=== PATIENT | female | born 1990 | race African-American/Black ===

== ENCOUNTER 2018-12-12 09:40 | Emergency (ER) | payer OTHER ==
[~2018-12-12] VITALS: Ht 170.2 cm; Wt 64.9 kg
[2018-12-12 10:03] VITALS: BP 119/74
--- NOTE | 2018-12-12 10:05 | NUR ---
ED Nurse Note: pt walked in to ED due to abscess on left buttocks for 3 days. per pt, it was not that bad until this morning. pt tried to pop and size get bigger and painful. no drainage noted. swelling noted. AAO x4. respirations even and non-labored noted. will wait for the further order.
[2018-12-12] MEDS ORDERED: Lidocaine 1% MPF 10mg/ml 5ml INJ ONE (10:30)
--- NOTE | 2018-12-12 11:10 | NUR ---
HAND-OFF: Report given to WINSTON Varner.
[2018-12-12] MEDS ORDERED: DOXYCYCLINE MO100 MG ORAL (12:07)
--- NOTE | 2018-12-12 12:07 | Emergency Room Report ---
History of Present Illness General Chief Complaint: Skin Rash/Abscess Source: Patient Present Illness HPI She states that for the past 3 days she has noted a bump on her left mid buttock. She states she has had abscesses before and she is concerned that this is becoming warm. She denies fever chills. She denies nausea or vomiting. She states that it is tender to the touch. She has no other complaints. Allergies: Coded Allergies: No Known Allergies (Unverified , 12/12/18) Patient History Past Medical History: see triage record, other - anemia Social History: Denies: smoking, alcohol use, drug use Last Menstrual Period: 12/02/18 Now: No Reviewed Nursing Documentation: PMH: Agreed; PSxH: Agreed Nursing Documentation-PMH Past Medical History: No History, Except For Review of Systems All Other Systems: negative except mentioned in HPI Physical Exam Vital Signs Date Time Temp Pulse Resp B/P (MAP) Pulse Ox O2 Delivery O2 Flow Rate FiO2 12/12/18 09:46 98.2 83 21 95 Room Air 12/12/18 10:03 119/74 Sp02 EP Interpretation: reviewed, normal General Appearance: no apparent distress, alert, GCS 15, non-toxic Head: normocephalic, atraumatic Eyes: bilateral eye normal inspection, bilateral eye PERRL ENT: hearing grossly normal, normal pharynx, no angioedema, normal voice Neck: normal inspection Respiratory: no respiratory distress, no retraction, no accessory muscle use, speaking full sentences Rectal: deferred Musculoskeletal: back normal, gait/station normal, normal range of motion Neurologic: alert, oriented x3, responsive, motor strength/tone normal, speech normal Psychiatric: judgement/insight normal, memory normal, mood/affect normal, no suicidal/homicidal ideation Skin: warm/dry, well hydrated, other - L. mid buttock with quarter-sized area of erythema with tiny central pustule Lymphatic: no adenopathy Procedures Incision and Drainage Incision and Drainage : Consent: Verbal Site: L. buttock Blade Size: Wound Location: other - buttock Anesthesia: 1% Lidocaine Volume Anesthetic (ccs): 2 Patient Tolerated: Well Complications: None Medical Decision Making Diagnostic Impression: Primary Impression: Cellulitis ER Course Patient has a small area of cellulitis on her left mid buttock. I believe that there was a small pustule there that drained spontaneously. However, I did attempt needle aspiration of the area and there were no purulent discharge obtained. I will place the patient on antibiotics. There is no systemic symptoms and overall the patient is nontoxic and well-appearing. She is given close return precautions and follow-up instructions. Last Vital Signs Date Time Temp Pulse Resp B/P (MAP) Pulse Ox O2 Delivery O2 Flow Rate FiO2 12/12/18 10:03 98.2 83 21 119/74 95 Room Air Status: improved Disposition: HOME, SELF-CARE Condition: Improved Referrals: NON PHYSICIAN (PCP) Jewell Diego DO December 12, 2018 12:07
[2018-12-12] MEDS ORDERED: HIBICLENS118 ML TP (12:08)
[2018-12-12] MEDS ORDERED: IBUPROFEN600 MG ORAL (12:08)
--- NOTE | 2018-12-12 12:21 | NUR ---
ED Nurse Note: pt cleared to be d/c per ERMD, pt discharge and aftercare instruction provided w/ prescription sent electronically, pt education done via discussion and handout, pt verbalized understanding and agrees with plan, pt advised to follow up with pcp or return to ER if changes in condition, vss, resp even and unlabored on RA, pt left w/ all belongings.
[2018-12-12 12:22] VITALS: BP 116/76
== END 2018-12-12 12:23 | disposition home or self-care (01) ==
LOC: EMR 10:17
DX: L03.317 Cellulitis of buttock (principal)
CPT/HCPCS: 10060; 99282

== ENCOUNTER 2020-03-06 13:25 | Emergency (ER) | payer OTHER ==
[~2020-03-06] VITALS: Ht 172.7 cm; Wt 59.0 kg
[~2020-03-06 13:25] MED LIST: DOXYCYCLINE MO100 MG ORAL; HIBICLENS118 ML TP; IBUPROFEN600 MG ORAL
[2020-03-06 13:46] VITALS: BP 111/77
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
[2020-03-06] MEDS ORDERED: Lidocaine 1% MPF 10mg/ml 5ml INJ ONE (14:15)
[2020-03-06 14:40] LABS: BILIRUBIN, URINE NEGATIVE (NEGATIVE); COLOR,URINE PALE YELLOW; GLUCOSE, URINE (UA) NEGATIVE (NEGATIVE); KETONES,URINE NEGATIVE (NEGATIVE); LEUKOCYTE ESTERASE ,URINE NEGATIVE (NEGATIVE); NITRITE,URINE NEGATIVE (NEGATIVE); PH,URINE 6 (4.5-8.0); PROTEIN,URINE NEGATIVE (NEGATIVE); UROBILINOGEN,URINE NORMAL MG/DL (0.0-1.0)
[2020-03-06 14:41] LABS: APPEARANCE,URINE CLEAR
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
[2020-03-06] MEDS ORDERED: VIBRAMYCIN100 MG ORAL (14:47)
[2020-03-06] MEDS ORDERED: FLUCONAZOLE100 MG ORAL (14:47)
[2020-03-06 15:04] VITALS: BP 111/77
--- NOTE | 2020-03-06 15:05 | NUR ---
ED Nurse Note: Pt cleared by health care Provider for discharge. DC instructions/prescription was given and explained to pt and verbalized understanding of teachings. All medical deviecs such as ID band removed. Pt is AAO x4, ambulatory and left with all personal belongings.
== END 2020-03-06 15:06 | disposition home or self-care (01) ==
LOC: EMR 13:53
DX: Z20.2 Contact with and (suspected) exposure to infections with a predominantly sexual mode of transmission (principal)
CPT/HCPCS: 81001; 81025; 96372; 96374; J0696; Z7502; 99284

== ENCOUNTER 2020-03-15 15:49 | Emergency (ER) | payer OTHER ==
[~2020-03-15] VITALS: Ht 170.2 cm; Wt 58.1 kg
[~2020-03-15 15:49] MED LIST changes: +FLUCONAZOLE100 MG ORAL; +VIBRAMYCIN100 MG ORAL
--- NOTE | 2020-03-15 16:02 | NUR ---
ED Nurse Note: Pt in restroom obtaining urine sample.
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
--- NOTE | 2020-03-15 16:04 | NUR ---
ED Nurse Note: urine sample sent to lab.
[2020-03-15 16:10] VITALS: BP 126/85
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
[2020-03-15] MEDS ORDERED: Lidocaine 1% MPF 10mg/ml 5ml INJ ONE (17:30)
[2020-03-15] MEDS ORDERED: Azithromycin 250mg tab ORAL ONE (17:30)
[2020-03-15 17:36] VITALS: BP 121/79
--- NOTE | 2020-03-15 17:36 | NUR ---
ER DISCHARGE NOTE: Patient is cleared to be discharged per ERMD, pt is aox4, on room air, with stable vital signs. pt was given dc instructions, pt was able to verbalize understanding, pt id band. pt is able to ambulate with steady gait. pt took all belongings.
== END 2020-03-15 17:37 | disposition home or self-care (01) ==
LOC: EMR 16:01
DX: F41.9 Anxiety disorder, unspecified (principal); Z20.2 Contact with and (suspected) exposure to infections with a predominantly sexual mode of transmission; F12.90 Cannabis use, unspecified, uncomplicated
CPT/HCPCS: 80307; 81025; 93005; 96372; 96374; J0696; Q0144; Z7502; 99284